=== PATIENT | female | born 1975 | race Caucasian/White ===

== ENCOUNTER → 2018-07-06 | Outpatient (CLI) | payer BC ==
--- NOTE | 2018-07-06 16:13 | RAD ---
SPINE COMPLETE AP LAT History: ENTIRE SPINE PAIN SINCE CARRYING TWINS THAT ARE NOW 16 MONTHS OLD. Comparison: None. Findings: A total of 8 views of the cervical, thoracic, lumbar spine are submitted. There is moderate degenerative disc disease C4-5 and to lesser degree at C5-C6 with spondylosis greatest C4-5 to C6-7. There is mild reversal of the lordotic curvature centered centered at C4-5. Vertebral body stature is maintained at all levels. There is grade 1 anterior spondylolisthesis L4-5. There is moderate to severe degenerative disc disease at L4-5 and to a somewhat lesser degree at L5-S1 and L3-4. There is facet degenerative change greater inferiorly of the lumbar spine. There is mild lumbar levoscoliosis. There is mild left lateral subluxation L4 relative L5. Thoracic intervertebral disc spaces are relatively preserved. Impression: 1. There is cervical degenerative disc disease and spondylosis greatest C4-5 and C5-6. 2. There is lumbar degenerative disc disease greatest L3-4 to L5-S1. There is multilevel lumbar facet degenerative change, mild left lateral subluxation L4 relative to L5 and also grade 1 anterior spondylolisthesis at L4-5. There is mild lumbar levoscoliosis. Electronically signed by: Kevin Morales MD (07/06/2018 4:09 PM) [facility]
--- NOTE | 2018-07-06 16:15 | RAD ---
Flexion and extension lateral lumbar radiographs History: ENTIRE SPINE PAIN SINCE CARRYING TWINS THAT ARE NOW 16 MONTHS OLD. Comparison: None. Findings: Flexion and extension lateral radiographs of lumbar spine are submitted. There is grade 1 anterior spondylolisthesis L4-5 somewhat reduced with extension compared with flexion. There is negligible posterior subluxation of L3 relative L4 accentuated with extension. There is degenerative disc disease greatest at L4-5 and to a somewhat lesser degree at L3-4 and L5-S1. There is facet degenerative change greater inferiorly of the lumbar spine. Lumbar vertebral body stature is maintained. Impression: 1. There is grade 1 anterior spondylolisthesis L4-5 somewhat reduced with extension. There is negligible posterior subluxation of L3 relative L4 accentuated with extension. There is degenerative disc disease greatest L3-4 to L5-S1. There is multilevel facet degenerative change greater inferiorly of the lumbar spine. Electronically signed by: Kevin Morales MD (07/06/2018 4:11 PM) [facility]
== END | disposition home or self-care (01) ==
LOC: PMG 13:52
PROVIDERS: ATTEND Registered Nurse
DX: S33.140A Subluxation of L4/L5 lumbar vertebra, initial encounter (principal); M50.321 Other cervical disc degeneration at C4-C5 level; M47.892 Other spondylosis, cervical region; X58.XXXA Exposure to other specified factors, initial encounter; Y93.89 Activity, other specified; Y92.89 Other specified places as the place of occurrence of the external cause; Y99.8 Other external cause status
CPT/HCPCS: 72100

== ENCOUNTER → 2021-01-23 | Outpatient (CLI) | payer BC ==
--- NOTE | 2021-01-23 11:07 | RAD ---
EXAM: Bilateral digital screening mammogram with tomosynthesis. HISTORY: 45-year-old female presents for screening mammography. TECHNIQUE: Full-field digital craniocaudal and mediolateral oblique 2D and 3D tomosynthesis images of both breasts are obtained for evaluation. Computer aided detection was applied. COMPARISON: None. This is baseline mammogram. BREAST PARENCHYMAL DENSITY: Level B - Scattered fibroglandular densities. FINDINGS: There is asymmetric increased nodular asymmetry within the retroareolar aspect of the right breast, a component which is likely due to ductal ectasia and fibrocystic changes. There is no archi tectural distortion or suspicious calcific lesion within either breast. IMPRESSION: BI-RADS Category 0: Incomplete. Additional imaging needed. RECOMMENDATION: Further evaluation with a right breast sonogram is recommended to assess areas of nod ular asymmetry within the retroareolar distribution, given the absence of prior studies to confirm st ability. If your mammogram demonstrates that you have dense breast tissue, which could hide abnormalities, and if you have other risk factors for breast cancer that have been identified, you might benefit from s upplemental screening tests that may be suggested by your ordering physician. Dense breast tissue, i n and of itself, is a relatively common condition. This information is not provided to cause undue c oncern, but rather to raise your awareness and to promote discussion with your physician regarding th e presence of other risk factors, in addition to dense breast tissue. A report of your mammography re sults will be sent to you and your physician. You should contact your physician if you have any ques tions or concerns regarding this report. Mammography is a sensitive method for finding small breast cancers, but it does not detect them all a nd is not a substitute for careful clinical examination. A negative mammogram does not negate a clin ically suspicious finding and should not result in delay in biopsying a clinically suspicious abnorma lity. PQRS compliance statement - Patient information was entered into a reminder system with a target due date for the next mammogram. "Our facility is accredited by the [employer] Mammography [employer]." Electronically signed by: Katrina Myles MD (01/23/2021 11:05 AM) [id number]
== END ==
LOC: MAMMO 08:37
PROVIDERS: ATTEND Physician Assistant Medical
DX: Z12.31 Encounter for screening mammogram for malignant neoplasm of breast (principal)
CPT/HCPCS: 77063; 77067

== ENCOUNTER → 2021-02-04 | Outpatient (CLI) | payer BC ==
--- NOTE | 2021-02-04 13:40 | RAD ---
EXAM: Right breast sonogram. HISTORY: 45-year-old female presents for evaluation of nodularity within the right breast demonstrate d on a screening mammogram dated 01/23/2021. TECHNIQUE: Sonographic imaging of the right breast targeted to the site of mammographic nodularity wa s performed. COMPARISON: 01/23/2021. FINDINGS: There are dilated ducts within the subareolar aspect of the right breast, likely accounting for areas of mammographic nodularity of concern. There is a filling defect within a duct at the 9:00 subareolar location measuring 1.0 x 1.0 x 0.2 cm in maximum dimension. This demonstrates no internal blood flow and may be due to inspissated debris rather than a solid nodule. There are benign-appeari ng axillary lymph nodes. IMPRESSION: 1. Dilated duct with a 1.0 cm filling defect within the 9:00 subareolar aspect of the right breast, p ossibly due to inspissated debris. The possibility of a papilloma is not completely excluded. Sonogra phic guided biopsy is recommended for definitive diagnosis. 2. Dilated ducts within the anterior right breast accounting for areas of mammographic nodularity on the screening mammogram dated 01/23/2021. 3. BI-RADS Category 4: Suspicious abnormality. Sonographic and biopsy of the aforementioned lesion at the 9:00 subareolar location is recommended. These findings and recommendations were discussed with the patient and communicated to the referring SHWETA Jordan at 1330 hours on 02/04/2021. Electronically signed by: Katrina Myles MD (02/04/2021 1:38 PM) [id number]
== END ==
LOC: US 12:59
PROVIDERS: ATTEND Physician Assistant Medical
DX: R92.2 Inconclusive mammogram (principal); N64.89 Other specified disorders of breast
CPT/HCPCS: 76641